=== PATIENT | female | born 1960 | race Caucasian/White ===

== ENCOUNTER → 2016-06-23 | Outpatient (CLI) | payer MEDICARE, MEDICAID ==
[2016-06-23 09:39] LABS: CHLORIDE,CL 101 mmol/L (98-110); SODIUM,NA 134 mmol/L (136-146)
== END ==
LOC: MW.CHFP 08:47
PROVIDERS: ATTEND Physician Assistant
DX: I10 Essential (primary) hypertension (principal); E11.9 Type 2 diabetes mellitus without complications; E66.9 Obesity, unspecified; R53.83 Other fatigue; G47.33 Obstructive sleep apnea (adult) (pediatric); Z99.89 Dependence on other enabling machines and devices
CPT/HCPCS: 36415; 80048; 83036; 84443; 85025; 99214

== ENCOUNTER → 2016-06-29 | Outpatient (CLI) | payer MEDICARE, MEDICAID | LOC: MW.CHFP 08:00 | PROVIDERS: ATTEND Student in an Organized Health Care Education/Training Program | DX: Z51.81 Encounter for therapeutic drug level monitoring (principal); Z79.01 Long term (current) use of anticoagulants; Z95.2 Presence of prosthetic heart valve | CPT/HCPCS: 85610; 99211 ==

== ENCOUNTER → 2016-07-30 | Outpatient (CLI) | payer MEDICARE, MEDICAID | LOC: MW.CHFP 08:00 | PROVIDERS: ATTEND Student in an Organized Health Care Education/Training Program | DX: Z51.81 Encounter for therapeutic drug level monitoring (principal); Z79.01 Long term (current) use of anticoagulants; Z95.2 Presence of prosthetic heart valve | CPT/HCPCS: 85610; 99211 ==

== ENCOUNTER → 2016-08-12 | Outpatient (CLI) | payer MEDICARE, MEDICAID | LOC: MW.RT 19:52 | PROVIDERS: ATTEND Physician Assistant | DX: G47.33 Obstructive sleep apnea (adult) (pediatric) (principal) | CPT/HCPCS: 95811 ==

== ENCOUNTER → 2016-08-31 | Outpatient (CLI) | payer MEDICARE, MEDICAID | LOC: MW.CHFP 08:00 | PROVIDERS: ATTEND Student in an Organized Health Care Education/Training Program | DX: Z51.81 Encounter for therapeutic drug level monitoring (principal); Z79.01 Long term (current) use of anticoagulants; Z95.2 Presence of prosthetic heart valve | CPT/HCPCS: 85610; 99211 ==

== ENCOUNTER 2020-12-06 08:18 | Day surgery (SDC) | payer MEDICARE, MEDICAID ==
[~2020-12-06 08:18] MED LIST: Lactated Ringers 1,000 ML IV SCH; cefOXitin 1 GM Vial ONE; cefOXitin 2 GM in Premix Bag 1 BAG IV ONE; propofoL 50 ML ONE
--- NOTE | 2020-12-06 08:35 | PCM.PREANE ---
Preanesthetic Assessment - Anesthesia/Transfusion/Family Hx Anesthesia History: Prior Anesthesia Without Reaction Other Type of Anesthesia Reaction Comment: anxiety due to medicaion that contained soy Family History of Anesthesia Reaction: No Transfusion History: No Prior Transfusion(s) Intubation History: Unknown - Review of Systems General: Weakness Pulmonary: Shortness of Breath, Cough Cardiovascular: Dyspnea on Exertion Gastrointestinal: No Symptoms Neurological: No Symptoms Other: Reports: Easy Bleeding, Diabetes - Physical Assessment Height: 5 ft 2 in Weight: 234 lb ASA Class: 3 Mental Status: Alert & Oriented x3 Airway Class: Mallampati = 2 Dentition: Reports: Normal Dentition Thyro-Mental Finger Breadths: 3 Mouth Opening Finger Breadths: 3 ROM/Head Extension: Full Lungs: Clear to Auscultation, Normal Respiratory Effort Cardiovascular: Regular Rate, Regular Rhythm - Allergies Allergies/Adverse Reactions: Allergies Allergy/AdvReac Type Severity Reaction Status Date / Time alfalfa Allergy Other Verified 12/02/20 13:34 corn Allergy Other Verified 12/02/20 13:34 Egg Derived Allergy Other Verified 12/02/20 13:34 Estrogens Allergy Hives Verified 12/02/20 13:34 Fish Containing Products Allergy Other Verified 12/02/20 13:34 latex Allergy Other Verified 12/02/20 13:34 metformin Allergy Other Verified 12/02/20 13:34 milk Allergy Other Verified 12/02/20 13:34 Penicillins Allergy Rash Verified 12/02/20 13:34 perfume Allergy Other Verified 12/02/20 13:34 rice Allergy Other Verified 12/02/20 13:34 shellfish derived Allergy Other Verified 12/02/20 13:34 soy Allergy Hives Verified 12/02/20 13:34 Sulfa (Sulfonamide Allergy Hives Verified 12/02/20 13:34 Antibiotics) tree and shrub pollen Allergy Other Verified 08/26/20 18:22 all grains Allergy Hives Uncoded 08/26/20 18:22 - Blood Blood Available: No - Acknowledgements Anesthesia Type Planned: General Anesthesia Pt an Appropriate Candidate for the Planned Anesthesia: Yes Alternatives and Risks of Anesthesia Discussed w Pt/Guardian: Yes Pt/Guardian Understands and Agrees with Anesthesia Plan: Yes PreAnesthesia Questionnaire HEENT History: Reports: Epistaxis Other HEENT History: wears glasses Cardiovascular History: Reports: Blood Clots/VTE/DVT, Heart Valve Replacement, Hypertension Other Cardiovascular History: hx of a "minor" blood clot in her leg 20 years ago- was already on anticoagulants Respiratory History: Reports: Asthma Other Respiratory History: unable to use CPAP because of latex allergy Gastrointestinal History: Reports: Cirrhosis, GERD Other Gastrointestinal History: recent positive Cologard test, has had diarrhea for 6 months, recent hospitalization for dehydration Genitourinary History: Reports: UTI, Recurrent Other Genitourinary History: atrophy of left kidney [employer] History: Reports: Musculoskeletal History: Reports: Back Pain, Chronic Other Musculoskeletal History: hx of fx foot, hx of scoliosis, degenerative disc disease Neurological History: Reports: CVA, Migraines Other Neuro History: 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- no migraines currently Psychiatric History: Reports: Depression Endocrine/Metabolic History: Reports: Diabetes, Type II, Obesity/BMI 30+ Other Endocrine/Metabolic History: diabetes is diet controlled Hgb A1c is 5.0 Hematologic History: Reports: Anticoagulation Therapy Immunologic History: Reports: None Oncologic (Cancer) History: Reports: None Dermatologic History: Reports: None - Infectious Disease History Infectious Disease History: Reports: Chicken Pox, Scarlet Fever - Past Surgical History HEENT Surgical History: Reports: Tonsillectomy Cardiovascular Surgical History: Reports: Valve Replacement GI Surgical History: Reports: Bariatric Procedure, Colonoscopy, EGD Female Surgical History: Reports: D&C, Hysterectomy Musculoskeletal Surgical History: Reports: Other (See Below) Other Musculoskeletal Surgeries/Procedures:: bilateral knee surgeries, right shoulder surgery for a spur - SUBSTANCE USE Tobacco Use Status *Q: Never Tobacco User Recreational Drug Use History: No - HOME MEDS Home Medications: Home Meds Cyclobenzaprine [Flexeril] 10 mg PO TID PRN 09/21/14 [History] EPINEPHrine [Epipen] 1 injection SUBCUT ASDIRECTED PRN 09/21/14 [History] PARoxetine [Paxil] 20 mg PO BEDTIME 09/21/14 [History] Warfarin Sodium [Jantoven] 1 tab PO BEDTIME 09/21/14 [History] Albuterol Sulfate [Proair Hfa] 1 - 2 puff INH Q4H PRN 12/02/20 [History] Montelukast Sodium 10 mg PO DAILY 12/02/20 [History] - CURRENT (IN HOUSE) MEDS Current Meds: Current Medications Lactated Ringer's (Ringers, Lactated) 1,000 mls @ 125 mls/hr IV ASDIRECTED LINA Discontinued Medications Cefoxitin Sodium (Cefoxitin 1 Gm Vial) Confirm Administered Dose 2 gm .ROUTE .STK-MED ONE Stop: 12/06/20 07:44 Cefoxitin Sodium 2 gm/ Premix 50 mls @ 100 mls/hr IV ONETIME ONE Stop: 12/06/20 07:29 Propofol (Diprivan 50 Ml) Confirm Administered Dose 50 mls @ as directed .ROUTE .STK-MED ONE Stop: 12/06/20 07:41 Lidocaine HCl (Lidocaine 1% 5 Ml Sdv) Confirm Administered Dose 5 ml .ROUTE .STK-MED ONE Stop: 12/06/20 07:43
[2020-12-06] MEDS ORDERED: Propofol 200 MG/20 ML SDV ONE ×2 (10:23→10:45)
[2020-12-06] MEDS ORDERED: Lactated Ringers 1,000 ML IV SCH (11:00)
--- NOTE | 2020-12-06 11:00 | PCM.OPNOTE ---
- General Post-Op/Procedure Note Date of Surgery/Procedure: 12/06/20 Operative Procedure(s): Colonoscopy with snare rectal polypectomy, cold cecal polypectomy and biopsies of the ascending colon and descending colon. Pre Op Diagnosis: Positive Cologuard. Family history of colon cancer. Rectal bleeding. Chronic anticoagulation. Post-Op Diagnosis: Rectal polyp. Cecal polyp. Angiodysplasia. Anesthesia Technique: MAC (ASA III) Primary Surgeon: Abilio Leo Condition: Good Free Text/Narrative:: DICTATION [id number] CPT CODE [id number]
--- NOTE | 2020-12-06 11:06 | PCM48HPAN ---
Post Anesthesia Note - EVALUATION WITHIN 48HRS OF ANESTHETIC Vital Signs in Normal Range: Yes Patient Participated in Evaluation: Yes Respiratory Function Stable: Yes Airway Patent: Yes Cardiovascular Function Stable: Yes Hydration Status Stable: Yes Pain Control Satisfactory: Yes Nausea and Vomiting Control Satisfactory: Yes Mental Status Recovered: Yes Vital Signs: Last Vital Signs Temp 98.2 F 12/06/20 10:54 Pulse 74 12/06/20 11:05 Resp 32 H 12/06/20 11:05 BP 125/65 12/06/20 11:05 Pulse Ox 97 12/06/20 11:05
--- NOTE | 2020-12-06 11:06 | PCM.POSTAN ---
POST ANESTHESIA ASSESSMENT - MENTAL STATUS Mental Status: Alert, Oriented - VITAL SIGNS Vital Signs: Last Vital Signs Temp 98.2 F 12/06/20 10:54 Pulse 76 12/06/20 11:00 Resp 22 H 12/06/20 11:00 BP 122/60 12/06/20 11:00 Pulse Ox 99 12/06/20 11:00 - RESPIRATORY Respiratory Status: Respiratory Rate WNL, Airway Patent, O2 Saturation Stable - CARDIOVASCULAR CV Status: Pulse Rate WNL, Blood Pressure Stable - GASTROINTESTINAL GI Status: No Symptoms - POST OP HYDRATION Hydration Status: Adequate & Stable
[2020-12-06 12:32] VITALS: BP 129/60; PULSE 70
--- NOTE | 2020-12-06 15:20 | OR ---
SURGEON: Abilio Leo M.D. DATE OF PROCEDURE: 12/06/2020 OPERATION PERFORMED: Colonoscopy with cold cecal polypectomy, snare rectal polypectomy and biopsies of the ascending colon and descending colon. PRIMARY SURGEON: Abilio Leo M.D. ANESTHESIA: MAC. ASA CLASSIFICATION: III. PREOPERATIVE DIAGNOSES: 1. Positive Cologuard test. 2. Family history of colon cancer. 3. Rectal bleeding. POSTOPERATIVE DIAGNOSES: 1. Rectal polyp. 2. Cecal polyp. 3. Angiodysplasia. DESCRIPTION OF PROCEDURE: The patient was taken to the endoscopy room and positioned on the endoscopy table in the left lateral decubitus position. Time-out was called for appropriate identification of the patient and procedure. Monitored anesthesia care was provided. The colonoscope was inserted into the rectum and immediately, we did notice blood in the rectum. There was no obvious cause for the bleeding, and I was able to advance the colonoscope all the way to the cecum. The cecum was identified by internal landmarks and external pressure. One small polyp was encountered in the cecum and removed with the cold biopsy forceps. The patient did have changes suggestive of angiodysplasia in the ascending colon, and biopsies of this area were obtained. The colonoscope was retroflexed to visualize the ascending colon from below and then straightened and slowly withdrawn. The cecum, ascending colon, hepatic flexure, transverse colon, splenic flexure, and descending colon showed changes suggestive of angiodysplasia. Random biopsies were obtained from multiple sites in the colon. The colonoscope was slowly withdrawn through the sigmoid colon to the rectum. No diverticular changes were noted in the sigmoid colon. One polyp was encountered in the rectum and this was removed with the snare electrocautery and recovered. It was just slightly less than 1 cm in size. The colonoscope was then retroflexed to visualize the anal orifice from above. No acute hemorrhoidal changes were noted. The colonoscope was then straightened, the rectum aspirated, and the colonoscope removed. The patient did tolerate the procedure well and was taken to recovery room in stable condition. CHERYL / KOJO /[id number]
== END 2020-12-06 11:50 | disposition home or self-care (01) ==
LOC: MW.SDS 08:18
PROVIDERS: ATTEND Surgery
DX: D12.0 Benign neoplasm of cecum (principal); D12.8 Benign neoplasm of rectum; K55.20 Angiodysplasia of colon without hemorrhage; J45.20 Mild intermittent asthma, uncomplicated; I13.0 Hypertensive heart and chronic kidney disease with heart failure and stage 1 through stage 4 chronic kidney disease, or unspecified chronic kidney disease; I50.9 Heart failure, unspecified; N18.30 Chronic kidney disease, stage 3 unspecified; E11.9 Type 2 diabetes mellitus without complications; I10 Essential (primary) hypertension; M81.0 Age-related osteoporosis without current pathological fracture; G47.33 Obstructive sleep apnea (adult) (pediatric); Z88.0 Allergy status to penicillin; Z88.2 Allergy status to sulfonamides; Z91.040 Latex allergy status; Z91.012 Allergy to eggs; Z91.013 Allergy to seafood; Z79.01 Long term (current) use of anticoagulants; Z79.899 Other long term (current) drug therapy; Z80.0 Family history of malignant neoplasm of digestive organs; Z95.4 Presence of other heart-valve replacement
CPT/HCPCS: 45380; 45385; 88305; J0694; J2704; J7120; 00811

== ENCOUNTER 2023-10-07 15:02 | Inpatient (IN) | payer MEDICARE ==
[2023-10-07] MEDS: Sodium Chloride 0.9% 10 ML Syringe FLUSH PRN (15:58)
[2023-10-07] MEDS: Sodium Chloride 0.9% 2.5 ML Syringe FLUSH PRN (16:00)
[2023-10-07 16:51] LABS: HEMATOCRIT 34.7 % (37.0-47.0); HEMOGLOBIN 11.3 g/dL (12.0-16.0); IMMATURE GRAN ABSOLUTE AUTO 0.01 K/uL (0.00-0.05); IMMATURE GRAN PERCENT AUTO 0.2 % (0.0-0.4); LYMPHOCYTES PERCENT AUTO 6.4 % (24.0-44.0); MEAN CORPUSCULAR HEMOGLOBIN 30.8 pg (28.0-32.0); MEAN CORPUSCULAR HGB CONC 32.6 g/dL (32.0-36.0); MEAN CORPUSCULAR VOLUME 94.6 fL (83.0-99.0); MEAN PLATELET VOLUME 11.3 fL (9.4-12.3); MONOCYTES ABSOLUTE AUTO 0.02 K/uL (0.00-0.80); MONOCYTES PERCENT AUTO 0.4 % (0.0-8.0); NEUTROPHILS ABSOLUTE AUTO 4.34 K/uL (1.80-7.70); PLATELET COUNT,PLT 91 K/uL (150-400); RED BLOOD CELL COUNT 3.67 M/uL (4.10-5.30); WHITE BLOOD CELL COUNT,WBC 4.67 K/uL (3.9-11.3)
[2023-10-07 17:28] LABS: A/G RATIO 0.9 (0.9-1.6); ALBUMIN 3.5 g/dL (3.4-5.0); BILIRUBIN TOTAL 0.9 mg/dL (0.2-1.0); CALCIUM 9.3 mg/dL (8.5-10.1); CARBON DIOXIDE,CO2 16.3 mmol/L (21.0-32.0); CREATININE 3.2 mg/dL (0.6-1.0); EST CRCL DRUG DOSING (CG) 14.89 mL/min; POTASSIUM,K 6.5 mmol/L (3.5-5.1); PROTEIN TOTAL,TP 7.6 g/dL (6.4-8.2)
[2023-10-07 17:32] LABS: INR 2.37 (0.86-1.11)
[2023-10-07 18:07] LABS: APPEARANCE,URINE SLT CLOUDY; BILIRUBIN,URINE NEGATIVE (NEGATIVE); COLOR,URINE YELLOW; GLUCOSE,URINE NEGATIVE (NEGATIVE); KETONES,URINE NEGATIVE (NEGATIVE); LEUKOCYTE ESTERASE,URINE MODERATE (NEGATIVE); NITRITE,URINE NEGATIVE (NEGATIVE); OCCULT BLOOD,URINE TRACE-INTACT (NEGATIVE); PROTEIN,URINE 100 mg/dL (NEGATIVE); UROBILINOGEN,URINE 0.2 EU/dL (<2.0)
[2023-10-07] MEDS ORDERED: Glucagon,Human Recombinant 1 MG Vial IM PRN ×2 (18:11→22:56)
[2023-10-07] MEDS ORDERED: 50% Dextrose in Water 50 ML Syringe IVPUSH PRN ×2 (18:11→22:56)
[2023-10-07 18:23] LABS: RBC,URINE 0-2 (0-2/HPF)
[2023-10-07 18:24] LABS: BACTERIA,URINE 3+ (NEGATIVE); EPITHELIAL CELLS,URINE RARE (NONE-FEW); WBC,URINE 25-30 (0-5/HPF)
[2023-10-07] MEDS: Sodium Polystyrene Sulfonate 15 GM/60 ML Susp 60 ML Bot PO ONE (19:18)
[2023-10-07] MEDS: Insulin Regular, Human 100 Units/ML 10 ML Vial IVPUSH ONE (19:18)
[2023-10-07] MEDS: 50% Dextrose in Water 50 ML Syringe IVPUSH ONE (19:19)
[2023-10-07] MEDS: Lactated Ringers 1,000 ML IV STA (19:21)
[2023-10-07] MEDS: cefTRIAXone 1 GM in Sodium Chloride 0.9% 50 ML IV ONE (21:25)
[2023-10-07 21:35] LABS: CALCIUM 9.1 mg/dL (8.5-10.1); CARBON DIOXIDE,CO2 16.8 mmol/L (21.0-32.0); EST CRCL DRUG DOSING (CG) 15.88 mL/min; POTASSIUM,K 5.6 mmol/L (3.5-5.1)
[2023-10-07 21:43] LABS: LACTIC ACID 3.2 mmol/L (0.4-2.0)
[2023-10-07] MEDS ORDERED: Albuterol/Ipratropium 3.0-0.5 MG/3 ML Neb Soln NEB PRN (22:52)
[2023-10-07] MEDS ORDERED: Acetaminophen 325 MG Tab PO PRN (22:53)
[2023-10-08] MEDS: Sodium Chloride 0.9% 1,000 ML IV ONE (01:02)
[2023-10-08] MEDS: Sodium Chloride 0.9% 1,000 ML IV SCH (02:42)
[2023-10-08 07:10] LABS: BASOPHILS ABSOLUTE AUTO 0.01 K/uL (0.00-0.20); BASOPHILS PERCENT AUTO 0.1 % (0.0-1.0); HEMATOCRIT 34.4 % (37.0-47.0); HEMOGLOBIN 11.1 g/dL (12.0-16.0); IMMATURE GRAN ABSOLUTE AUTO 0.04 K/uL (0.00-0.05); IMMATURE GRAN PERCENT AUTO 0.3 % (0.0-0.4); LYMPHOCYTES ABSOLUTE AUTO 0.74 K/uL (1.00-4.80); LYMPHOCYTES PERCENT AUTO 6.1 % (24.0-44.0); MEAN CORPUSCULAR HEMOGLOBIN 31.1 pg (28.0-32.0); MEAN CORPUSCULAR HGB CONC 32.3 g/dL (32.0-36.0); MEAN CORPUSCULAR VOLUME 96.4 fL (83.0-99.0); MEAN PLATELET VOLUME 11.1 fL (9.4-12.3); MONOCYTES PERCENT AUTO 3.3 % (0.0-8.0); NEUTROPHILS ABSOLUTE AUTO 11.01 K/uL (1.80-7.70); NEUTROPHILS PERCENT AUTO 90.2 % (41.0-71.0); PLATELET COUNT,PLT 82 K/uL (150-400); RED BLOOD CELL COUNT 3.57 M/uL (4.10-5.30)
[2023-10-08 07:25] LABS: INR 2.72 (0.86-1.11)
[2023-10-08 07:29] LABS: CALCIUM 7.7 mg/dL (8.5-10.1); CARBON DIOXIDE,CO2 16.9 mmol/L (21.0-32.0); CREATININE 2.7 mg/dL (0.6-1.0); EST CRCL DRUG DOSING (CG) 17.64 mL/min; POTASSIUM,K 5.1 mmol/L (3.5-5.1)
[2023-10-08] MEDS: Insulin Aspart 100 Units/ML 3 ML Pen SUBCUT SCH (07:29)
[2023-10-08] MEDS: amLODIPine 2.5 MG Tab PO SCH (10:12)
[2023-10-08] MEDS: Warfarin 2.5 MG Tab PO SCH (16:46)
[2023-10-08] MEDS: Warfarin Sliding Scale PO SCH (19:03)
[2023-10-08] MEDS: cefTRIAXone 1 GM in Sodium Chloride 0.9% 50 ML IV SCH (21:42)
[2023-10-09 05:50] LABS: BASOPHILS ABSOLUTE AUTO 0.05 K/uL (0.00-0.20); BASOPHILS PERCENT AUTO 0.7 % (0.0-1.0); EOSINOPHILS ABSOLUTE AUTO 0.08 K/uL (0.00-0.45); HEMATOCRIT 30.7 % (37.0-47.0); HEMOGLOBIN 9.8 g/dL (12.0-16.0); IMMATURE GRAN ABSOLUTE AUTO 0.02 K/uL (0.00-0.05); IMMATURE GRAN PERCENT AUTO 0.3 % (0.0-0.4); LYMPHOCYTES ABSOLUTE AUTO 1.14 K/uL (1.00-4.80); LYMPHOCYTES PERCENT AUTO 14.9 % (24.0-44.0); MEAN CORPUSCULAR HEMOGLOBIN 30.7 pg (28.0-32.0); MEAN CORPUSCULAR HGB CONC 31.9 g/dL (32.0-36.0); MEAN CORPUSCULAR VOLUME 96.2 fL (83.0-99.0); MEAN PLATELET VOLUME 12.5 fL (9.4-12.3); MONOCYTES ABSOLUTE AUTO 0.39 K/uL (0.00-0.80); MONOCYTES PERCENT AUTO 5.1 % (0.0-8.0); NEUTROPHILS ABSOLUTE AUTO 5.97 K/uL (1.80-7.70); PLATELET COUNT,PLT 70 K/uL (150-400); RED BLOOD CELL COUNT 3.19 M/uL (4.10-5.30); WHITE BLOOD CELL COUNT,WBC 7.65 K/uL (3.9-11.3)
[2023-10-09 06:03] LABS: INR 2.34 (0.86-1.11)
[2023-10-09 06:06] LABS: CALCIUM 7.9 mg/dL (8.5-10.1); CREATININE 2.9 mg/dL (0.6-1.0); EST CRCL DRUG DOSING (CG) 16.42 mL/min
[2023-10-09 12:12] VITALS: BP 152/55; PULSE 73
[2023-10-09] MEDS ORDERED: Warfarin 2.5 MG Tab PO SCH ×2 (17:00)
== END 2023-10-09 12:40 | disposition home or self-care (01) | DRG 690 ==
LOC: MW.ED 15:02 → MW.MS 19:16 → OBSVTOIN 10-08 09:22
PROVIDERS: ADMIT Internal Medicine; ATTEND Internal Medicine
DX: N30.00 Acute cystitis without hematuria (principal); N17.9 Acute kidney failure, unspecified; N18.9 Chronic kidney disease, unspecified; I44.7 Left bundle-branch block, unspecified; E87.5 Hyperkalemia; Z66 Do not resuscitate; I12.9 Hypertensive chronic kidney disease with stage 1 through stage 4 chronic kidney disease, or unspecified chronic kidney disease; E11.22 Type 2 diabetes mellitus with diabetic chronic kidney disease; I10 Essential (primary) hypertension; K21.9 Gastro-esophageal reflux disease without esophagitis; M19.90 Unspecified osteoarthritis, unspecified site; M54.9 Dorsalgia, unspecified; G89.29 Other chronic pain; G43.909 Migraine, unspecified, not intractable, without status migrainosus; F32.A Depression, unspecified; J45.909 Unspecified asthma, uncomplicated; Z88.0 Allergy status to penicillin; E66.9 Obesity, unspecified; E11.9 Type 2 diabetes mellitus without complications; Z91.013 Allergy to seafood; Z91.018 Allergy to other foods; Z91.011 Allergy to milk products; Z79.51 Long term (current) use of inhaled steroids; Z91.012 Allergy to eggs; Z91.040 Latex allergy status; Z95.2 Presence of prosthetic heart valve; Z86.73 Personal history of transient ischemic attack (TIA), and cerebral infarction without residual deficits; Z88.2 Allergy status to sulfonamides; Z90.89 Acquired absence of other organs; Z98.84 Bariatric surgery status; Z88.8 Allergy status to other drugs, medicaments and biological substances; Z91.048 Other nonmedicinal substance allergy status; Z79.01 Long term (current) use of anticoagulants; Z79.899 Other long term (current) drug therapy; Z90.710 Acquired absence of both cervix and uterus; Z68.39 Body mass index [BMI] 39.0-39.9, adult; Z75.8 Other problems related to medical facilities and other health care
CPT/HCPCS: 36415 ×2; 71045; 80048 ×2; 80053; 81001; 82947 ×5; 83605 ×3; 84484; 85025 ×2; 85610 ×2; 87040 ×2; 87086; 87088; 87186; 93005; 96361 ×2; 96365; 96375; 99285; A9270; G0378 ×2; J0696; J1815; J3490 ×2; J7030 ×2; J7120; 97161-GP

== ENCOUNTER 2023-10-18 11:15 | Observation (INO) | payer MEDICARE ==
[2023-10-18 12:07] LABS: BASOPHILS ABSOLUTE AUTO 0.03 K/uL (0.00-0.20); BASOPHILS PERCENT AUTO 0.3 % (0.0-1.0); EOSINOPHILS ABSOLUTE AUTO 0.45 K/uL (0.00-0.45); EOSINOPHILS PERCENT AUTO 4.7 % (0.0-6.0); HEMATOCRIT 32.2 % (37.0-47.0); IMMATURE GRAN ABSOLUTE AUTO 0.13 K/uL (0.00-0.05); IMMATURE GRAN PERCENT AUTO 1.4 % (0.0-0.4); LYMPHOCYTES ABSOLUTE AUTO 0.98 K/uL (1.00-4.80); LYMPHOCYTES PERCENT AUTO 10.2 % (24.0-44.0); MEAN CORPUSCULAR HEMOGLOBIN 30.9 pg (28.0-32.0); MEAN CORPUSCULAR HGB CONC 31.1 g/dL (32.0-36.0); MEAN CORPUSCULAR VOLUME 99.4 fL (83.0-99.0); MEAN PLATELET VOLUME 11.3 fL (9.4-12.3); MONOCYTES PERCENT AUTO 11.5 % (0.0-8.0); NEUTROPHILS PERCENT AUTO 71.9 % (41.0-71.0); PLATELET COUNT,PLT 102 K/uL (150-400); RED BLOOD CELL COUNT 3.24 M/uL (4.10-5.30); WHITE BLOOD CELL COUNT,WBC 9.59 K/uL (3.9-11.3)
[2023-10-18] MEDS: Sodium Chloride 0.9% 2.5 ML Syringe FLUSH PRN (12:12)
[2023-10-18] MEDS: Sodium Chloride 0.9% 10 ML Syringe FLUSH PRN (12:12)
[2023-10-18] MEDS: Albuterol 0.083% 2.5 MG/3 ML Neb Soln NEB ONE (12:12)
[2023-10-18 12:16] LABS: INR 2.45 (0.86-1.11)
[2023-10-18 12:26] LABS: ALBUMIN 2.8 g/dL (3.4-5.0); BILIRUBIN TOTAL 1.5 mg/dL (0.2-1.0); CALCIUM 8.4 mg/dL (8.5-10.1); CARBON DIOXIDE,CO2 21.2 mmol/L (21.0-32.0); CREATININE 2.8 mg/dL (0.6-1.0); EST CRCL DRUG DOSING (CG) 16.26 mL/min; POTASSIUM,K 6.2 mmol/L (3.5-5.1); PROTEIN TOTAL,TP 6.1 g/dL (6.4-8.2)
[2023-10-18 12:30] LABS: A/G RATIO 0.9 (0.9-1.6)
[2023-10-18] MEDS: Furosemide 40 MG/4 ML VIAL IVPUSH ONE (13:06)
[2023-10-18] MEDS: Sodium Zirconium Cyclosilicate 10 GM Packet PO STA (13:06)
[2023-10-18] MEDS: Calcium Gluconate 10% 1 GM/10 ML SDV IVPUSH ONE (13:06)
[2023-10-18] MEDS ORDERED: Sodium Chloride 0.9% 10 ML Syringe FLUSH PRN (13:29)
[2023-10-18] MEDS ORDERED: Ondansetron 4 MG/2 ML SDV IVPUSH PRN (13:29)
[2023-10-18] MEDS ORDERED: Sodium Chloride 0.9% 2.5 ML Syringe FLUSH PRN (13:29)
[2023-10-18] MEDS ORDERED: Acetaminophen 325 MG Tab PO PRN (13:29)
[2023-10-18] MEDS ORDERED: Cyclobenzaprine 10 MG Tab PO PRN (14:57)
[2023-10-18] MEDS ORDERED: Albuterol 8 GM Inhaler INH PRN (14:57)
[2023-10-18] MEDS ORDERED: Allopurinol 100 MG Tab PO PRN (16:23)
[2023-10-18] MEDS: Allopurinol 100 MG Tab PO SCH (16:30)
[2023-10-18] MEDS: Warfarin 2.5 MG Tab PO ONE (16:51)
[2023-10-18] MEDS: Sodium Zirconium Cyclosilicate 10 GM Packet PO SCH (17:02)
[2023-10-18] MEDS: amLODIPine 5 MG Tab PO SCH (20:30)
[2023-10-18] MEDS: PARoxetine 20 MG Tab PO SCH (20:30)
[2023-10-18] MEDS: Montelukast 10 MG Tab PO SCH (20:30)
[2023-10-18] MEDS: Cephalexin 500 MG Cap PO SCH (20:30)
[2023-10-19 06:01] LABS: BASOPHILS ABSOLUTE AUTO 0.02 K/uL (0.00-0.20); BASOPHILS PERCENT AUTO 0.3 % (0.0-1.0); EOSINOPHILS ABSOLUTE AUTO 0.25 K/uL (0.00-0.45); EOSINOPHILS PERCENT AUTO 4.2 % (0.0-6.0); HEMATOCRIT 29.9 % (37.0-47.0); HEMOGLOBIN 9.2 g/dL (12.0-16.0); IMMATURE GRAN ABSOLUTE AUTO 0.02 K/uL (0.00-0.05); IMMATURE GRAN PERCENT AUTO 0.3 % (0.0-0.4); LYMPHOCYTES ABSOLUTE AUTO 1.05 K/uL (1.00-4.80); LYMPHOCYTES PERCENT AUTO 17.5 % (24.0-44.0); MEAN CORPUSCULAR HEMOGLOBIN 30.4 pg (28.0-32.0); MEAN CORPUSCULAR HGB CONC 30.8 g/dL (32.0-36.0); MEAN CORPUSCULAR VOLUME 98.7 fL (83.0-99.0); MEAN PLATELET VOLUME 11.8 fL (9.4-12.3); MONOCYTES ABSOLUTE AUTO 0.51 K/uL (0.00-0.80); MONOCYTES PERCENT AUTO 8.5 % (0.0-8.0); NEUTROPHILS ABSOLUTE AUTO 4.16 K/uL (1.80-7.70); NEUTROPHILS PERCENT AUTO 69.2 % (41.0-71.0); PLATELET COUNT,PLT 62 K/uL (150-400); RED BLOOD CELL COUNT 3.03 M/uL (4.10-5.30); WHITE BLOOD CELL COUNT,WBC 6.01 K/uL (3.9-11.3)
[2023-10-19 06:17] LABS: INR 2.22 (0.86-1.11)
[2023-10-19 06:22] LABS: CALCIUM 8.3 mg/dL (8.5-10.1); CARBON DIOXIDE,CO2 22.7 mmol/L (21.0-32.0); CREATININE 2.7 mg/dL (0.6-1.0); EST CRCL DRUG DOSING (CG) 17.64 mL/min; POTASSIUM,K 5.3 mmol/L (3.5-5.1)
[2023-10-19] MEDS: Sodium Zirconium Cyclosilicate 10 GM Packet PO SCH (09:26)
[2023-10-19 12:31] VITALS: BP 168/70; PULSE 73
[2023-10-19] MEDS ORDERED: Warfarin Sliding Scale SCH (14:00)
[2023-10-19] MEDS ORDERED: Warfarin 2.5 MG Tab PO ONE (14:00)
== END 2023-10-19 13:00 | disposition home or self-care (01) ==
LOC: MW.ED 11:15 → MW.MS 12:59
PROVIDERS: ADMIT Family Medicine; ATTEND Family Medicine
DX: E87.5 Hyperkalemia (principal); I12.0 Hypertensive chronic kidney disease with stage 5 chronic kidney disease or end stage renal disease; E11.22 Type 2 diabetes mellitus with diabetic chronic kidney disease; N18.5 Chronic kidney disease, stage 5; J45.909 Unspecified asthma, uncomplicated; Z95.2 Presence of prosthetic heart valve; K21.9 Gastro-esophageal reflux disease without esophagitis; E66.01 Morbid (severe) obesity due to excess calories; Z68.41 Body mass index [BMI] 40.0-44.9, adult; Z79.899 Other long term (current) drug therapy; Z88.0 Allergy status to penicillin; Z91.012 Allergy to eggs; Z91.040 Latex allergy status; Z91.013 Allergy to seafood; Z91.018 Allergy to other foods; Z88.8 Allergy status to other drugs, medicaments and biological substances; Z88.2 Allergy status to sulfonamides
CPT/HCPCS: 36415; 80048; 80053; 82947; 83690; 83735; 84132; 85025; 85610; 93005; 96374; 96375; 99285; A9270; G0378; J0612; J1940; J3490; 93010; 99284; J7620-GY

== ENCOUNTER 2023-12-31 14:25 | Inpatient (IN) | payer MEDICAID, MEDICARE ==
[2023-12-31] MEDS ORDERED: Sodium Chloride 0.9% 2.5 ML Syringe FLUSH PRN (15:09)
[2023-12-31] MEDS ORDERED: Sodium Chloride 0.9% 10 ML Syringe FLUSH PRN (15:09)
[2023-12-31 15:23] LABS: BASOPHILS ABSOLUTE AUTO 0.03 K/uL (0.00-0.20); BASOPHILS PERCENT AUTO 0.5 % (0.0-1.0); EOSINOPHILS ABSOLUTE AUTO 0.12 K/uL (0.00-0.45); EOSINOPHILS PERCENT AUTO 2.1 % (0.0-6.0); HEMATOCRIT 13.9 % (37.0-47.0); IMMATURE GRAN ABSOLUTE AUTO 0.02 K/uL (0.00-0.05); IMMATURE GRAN PERCENT AUTO 0.3 % (0.0-0.4); LYMPHOCYTES ABSOLUTE AUTO 0.83 K/uL (1.00-4.80); LYMPHOCYTES PERCENT AUTO 14.5 % (24.0-44.0); MEAN CORPUSCULAR HEMOGLOBIN 23.5 pg (28.0-32.0); MEAN CORPUSCULAR HGB CONC 30.2 g/dL (32.0-36.0); MEAN CORPUSCULAR VOLUME 77.7 fL (83.0-99.0); MEAN PLATELET VOLUME 9.1 fL (9.4-12.3); MONOCYTES ABSOLUTE AUTO 0.41 K/uL (0.00-0.80); MONOCYTES PERCENT AUTO 7.2 % (0.0-8.0); NEUTROPHILS ABSOLUTE AUTO 4.31 K/uL (1.80-7.70); NEUTROPHILS PERCENT AUTO 75.4 % (41.0-71.0); NRBC ABSOLUTE 0.02 K/uL (0.00-0.02); NRBC PERCENT 0.3 /100WBC (0.0-0.2); PLATELET COUNT,PLT 163 K/uL (150-400); RED BLOOD CELL COUNT 1.79 M/uL (4.10-5.30); WHITE BLOOD CELL COUNT,WBC 5.72 K/uL (3.9-11.3)
[2023-12-31 15:28] LABS: INR 2.51 (0.86-1.11)
[2023-12-31 15:40] LABS: HEMOGLOBIN 4.2 g/dL (12.0-16.0)
[2023-12-31 15:42] LABS: A/G RATIO 0.7 (0.9-1.6); ALBUMIN 2.9 g/dL (3.4-5.0); BILIRUBIN TOTAL 0.8 mg/dL (0.2-1.0); CALCIUM 8.3 mg/dL (8.5-10.1); CARBON DIOXIDE,CO2 16.8 mmol/L (21.0-32.0); CREATININE 3.9 mg/dL (0.6-1.0); EST CRCL DRUG DOSING (CG) 12.75 mL/min; POTASSIUM,K 4.1 mmol/L (3.5-5.1); PROTEIN TOTAL,TP 6.9 g/dL (6.4-8.2)
[2023-12-31] MEDS: Furosemide 40 MG/4 ML VIAL IVPUSH ONE (16:23)
[2023-12-31] MEDS ORDERED: Cyclobenzaprine 10 MG Tab PO PRN (19:33)
[2023-12-31] MEDS ORDERED: Albuterol 8 GM Inhaler INH PRN (19:33)
[2023-12-31 20:03] LABS: APPEARANCE,URINE CLEAR; BILIRUBIN,URINE NEGATIVE (NEGATIVE); COLOR,URINE YELLOW; GLUCOSE,URINE NEGATIVE (NEGATIVE); KETONES,URINE NEGATIVE (NEGATIVE); LEUKOCYTE ESTERASE,URINE SMALL (NEGATIVE); NITRITE,URINE NEGATIVE (NEGATIVE); OCCULT BLOOD,URINE MODERATE (NEGATIVE); PROTEIN,URINE NEGATIVE (NEGATIVE); UROBILINOGEN,URINE 0.2 EU/dL (<2.0)
[2023-12-31 20:19] LABS: BACTERIA,URINE 2+ (NEGATIVE); EPITHELIAL CELLS,URINE RARE (NONE-FEW); WBC,URINE 15-25 (0-5/HPF)
[2023-12-31] MEDS: PARoxetine 20 MG Tab PO SCH (21:13)
[2024-01-01 06:23] LABS: BASOPHILS ABSOLUTE AUTO 0.02 K/uL (0.00-0.20); BASOPHILS PERCENT AUTO 0.3 % (0.0-1.0); EOSINOPHILS ABSOLUTE AUTO 0.14 K/uL (0.00-0.45); EOSINOPHILS PERCENT AUTO 2.3 % (0.0-6.0); HEMATOCRIT 20.2 % (37.0-47.0); HEMOGLOBIN 6.3 g/dL (12.0-16.0); IMMATURE GRAN ABSOLUTE AUTO 0.02 K/uL (0.00-0.05); IMMATURE GRAN PERCENT AUTO 0.3 % (0.0-0.4); LYMPHOCYTES ABSOLUTE AUTO 0.77 K/uL (1.00-4.80); LYMPHOCYTES PERCENT AUTO 12.4 % (24.0-44.0); MEAN CORPUSCULAR HGB CONC 31.2 g/dL (32.0-36.0); MEAN CORPUSCULAR VOLUME 80.2 fL (83.0-99.0); MEAN PLATELET VOLUME 9.5 fL (9.4-12.3); MONOCYTES ABSOLUTE AUTO 0.59 K/uL (0.00-0.80); MONOCYTES PERCENT AUTO 9.5 % (0.0-8.0); NEUTROPHILS ABSOLUTE AUTO 4.68 K/uL (1.80-7.70); NEUTROPHILS PERCENT AUTO 75.2 % (41.0-71.0); NRBC ABSOLUTE 0.02 K/uL (0.00-0.02); NRBC PERCENT 0.3 /100WBC (0.0-0.2); PLATELET COUNT,PLT 134 K/uL (150-400); RED BLOOD CELL COUNT 2.52 M/uL (4.10-5.30); WHITE BLOOD CELL COUNT,WBC 6.22 K/uL (3.9-11.3)
[2024-01-01 07:26] LABS: CALCIUM 7.8 mg/dL (8.5-10.1); CREATININE 3.5 mg/dL (0.6-1.0); EST CRCL DRUG DOSING (CG) 14.21 mL/min
[2024-01-01 08:11] LABS: POTASSIUM,K 3.8 mmol/L (3.5-5.1)
[2024-01-01 11:51] LABS: INR 2.09 (0.86-1.11)
[2024-01-01 18:32] LABS: BASOPHILS ABSOLUTE AUTO 0.04 K/uL (0.00-0.20); BASOPHILS PERCENT AUTO 0.6 % (0.0-1.0); EOSINOPHILS ABSOLUTE AUTO 0.16 K/uL (0.00-0.45); EOSINOPHILS PERCENT AUTO 2.5 % (0.0-6.0); HEMATOCRIT 26.5 % (37.0-47.0); IMMATURE GRAN ABSOLUTE AUTO 0.06 K/uL (0.00-0.05); IMMATURE GRAN PERCENT AUTO 0.9 % (0.0-0.4); LYMPHOCYTES ABSOLUTE AUTO 0.66 K/uL (1.00-4.80); LYMPHOCYTES PERCENT AUTO 10.4 % (24.0-44.0); MEAN CORPUSCULAR HEMOGLOBIN 26.8 pg (28.0-32.0); MEAN CORPUSCULAR VOLUME 78.9 fL (83.0-99.0); MEAN PLATELET VOLUME 10.2 fL (9.4-12.3); MONOCYTES ABSOLUTE AUTO 0.44 K/uL (0.00-0.80); NEUTROPHILS ABSOLUTE AUTO 4.97 K/uL (1.80-7.70); NEUTROPHILS PERCENT AUTO 78.6 % (41.0-71.0); NRBC ABSOLUTE 0.03 K/uL (0.00-0.02); NRBC PERCENT 0.5 /100WBC (0.0-0.2); PLATELET COUNT,PLT 109 K/uL (150-400); RED BLOOD CELL COUNT 3.36 M/uL (4.10-5.30); WHITE BLOOD CELL COUNT,WBC 6.33 K/uL (3.9-11.3)
[2024-01-02 06:29] LABS: BASOPHILS ABSOLUTE AUTO 0.03 K/uL (0.00-0.20); BASOPHILS PERCENT AUTO 0.5 % (0.0-1.0); EOSINOPHILS ABSOLUTE AUTO 0.15 K/uL (0.00-0.45); EOSINOPHILS PERCENT AUTO 2.3 % (0.0-6.0); HEMATOCRIT 25.9 % (37.0-47.0); HEMOGLOBIN 8.6 g/dL (12.0-16.0); IMMATURE GRAN ABSOLUTE AUTO 0.03 K/uL (0.00-0.05); IMMATURE GRAN PERCENT AUTO 0.5 % (0.0-0.4); LYMPHOCYTES ABSOLUTE AUTO 0.64 K/uL (1.00-4.80); LYMPHOCYTES PERCENT AUTO 9.7 % (24.0-44.0); MEAN CORPUSCULAR HEMOGLOBIN 26.5 pg (28.0-32.0); MEAN CORPUSCULAR HGB CONC 33.2 g/dL (32.0-36.0); MEAN CORPUSCULAR VOLUME 79.7 fL (83.0-99.0); MEAN PLATELET VOLUME 9.2 fL (9.4-12.3); MONOCYTES ABSOLUTE AUTO 0.47 K/uL (0.00-0.80); MONOCYTES PERCENT AUTO 7.1 % (0.0-8.0); NEUTROPHILS ABSOLUTE AUTO 5.27 K/uL (1.80-7.70); NEUTROPHILS PERCENT AUTO 79.9 % (41.0-71.0); NRBC ABSOLUTE 0.02 K/uL (0.00-0.02); NRBC PERCENT 0.3 /100WBC (0.0-0.2); PLATELET COUNT,PLT 134 K/uL (150-400); RED BLOOD CELL COUNT 3.25 M/uL (4.10-5.30); WHITE BLOOD CELL COUNT,WBC 6.59 K/uL (3.9-11.3)
[2024-01-02 06:43] LABS: INR 1.97 (0.86-1.11)
[2024-01-02 06:49] LABS: CALCIUM 8.2 mg/dL (8.5-10.1); CARBON DIOXIDE,CO2 21.3 mmol/L (21.0-32.0); CREATININE 3.5 mg/dL (0.6-1.0); EST CRCL DRUG DOSING (CG) 14.21 mL/min; POTASSIUM,K 3.8 mmol/L (3.5-5.1)
[2024-01-02 16:14] LABS: HEMATOCRIT 24.3 % (37.0-47.0); HEMOGLOBIN 8.2 g/dL (12.0-16.0)
[2024-01-03 06:21] LABS: BASOPHILS ABSOLUTE AUTO 0.03 K/uL (0.00-0.20); BASOPHILS PERCENT AUTO 0.5 % (0.0-1.0); EOSINOPHILS ABSOLUTE AUTO 0.23 K/uL (0.00-0.45); EOSINOPHILS PERCENT AUTO 4.1 % (0.0-6.0); HEMATOCRIT 26.8 % (37.0-47.0); HEMOGLOBIN 8.7 g/dL (12.0-16.0); IMMATURE GRAN ABSOLUTE AUTO 0.03 K/uL (0.00-0.05); IMMATURE GRAN PERCENT AUTO 0.5 % (0.0-0.4); LYMPHOCYTES ABSOLUTE AUTO 0.81 K/uL (1.00-4.80); LYMPHOCYTES PERCENT AUTO 14.5 % (24.0-44.0); MEAN CORPUSCULAR HEMOGLOBIN 26.1 pg (28.0-32.0); MEAN CORPUSCULAR HGB CONC 32.5 g/dL (32.0-36.0); MEAN CORPUSCULAR VOLUME 80.5 fL (83.0-99.0); MEAN PLATELET VOLUME 8.9 fL (9.4-12.3); MONOCYTES ABSOLUTE AUTO 0.45 K/uL (0.00-0.80); NEUTROPHILS ABSOLUTE AUTO 4.05 K/uL (1.80-7.70); NEUTROPHILS PERCENT AUTO 72.4 % (41.0-71.0); PLATELET COUNT,PLT 127 K/uL (150-400); RED BLOOD CELL COUNT 3.33 M/uL (4.10-5.30)
[2024-01-03 06:44] LABS: CALCIUM 8.5 mg/dL (8.5-10.1); CARBON DIOXIDE,CO2 22.6 mmol/L (21.0-32.0); CREATININE 3.2 mg/dL (0.6-1.0); EST CRCL DRUG DOSING (CG) 15.54 mL/min; MAGNESIUM 1.4 mg/dL (1.8-2.4); POTASSIUM,K 3.9 mmol/L (3.5-5.1)
[2024-01-03] MEDS: Magnesium Sulfate/Water Premix 2 GM in Premix Bag 1 BAG IV ONE (08:56)
[2024-01-03] MEDS: Nystatin Topical Powder 15 GM Bottle TOP PRN (08:57)
[2024-01-03 12:13] VITALS: BP 148/61; PULSE 84
== END 2024-01-03 12:10 | disposition home or self-care (01) | DRG 812 ==
LOC: MW.ED 14:25 → MW.MS 16:29
PROVIDERS: ADMIT Internal Medicine; ATTEND Internal Medicine
PROC: 30233N1 Transfusion of Nonautologous Red Blood Cells into Peripheral Vein, Percutaneous Approach (ICD-10-PCS; principal; 2023-12-31)
PROC: 30233N1 Transfusion of Nonautologous Red Blood Cells into Peripheral Vein, Percutaneous Approach (ICD-10-PCS; 2024-01-01)
DX: D64.9 Anemia, unspecified (principal); N17.9 Acute kidney failure, unspecified; I10 Essential (primary) hypertension; E11.9 Type 2 diabetes mellitus without complications; E87.1 Hypo-osmolality and hyponatremia; I13.0 Hypertensive heart and chronic kidney disease with heart failure and stage 1 through stage 4 chronic kidney disease, or unspecified chronic kidney disease; Z68.41 Body mass index [BMI] 40.0-44.9, adult; R04.0 Epistaxis; Z88.2 Allergy status to sulfonamides; Z88.5 Allergy status to narcotic agent; I50.9 Heart failure, unspecified; E66.9 Obesity, unspecified; Z91.048 Other nonmedicinal substance allergy status; N18.9 Chronic kidney disease, unspecified; M10.9 Gout, unspecified; G89.29 Other chronic pain; M81.0 Age-related osteoporosis without current pathological fracture; J45.909 Unspecified asthma, uncomplicated; K21.9 Gastro-esophageal reflux disease without esophagitis; Z88.0 Allergy status to penicillin; Z88.8 Allergy status to other drugs, medicaments and biological substances; Z95.2 Presence of prosthetic heart valve; Z86.73 Personal history of transient ischemic attack (TIA), and cerebral infarction without residual deficits; Z91.040 Latex allergy status; Z91.011 Allergy to milk products; Z91.018 Allergy to other foods; Z91.012 Allergy to eggs; Z91.013 Allergy to seafood; Z79.01 Long term (current) use of anticoagulants; Z79.899 Other long term (current) drug therapy; Z90.710 Acquired absence of both cervix and uterus; Z98.890 Other specified postprocedural states; Z96.659 Presence of unspecified artificial knee joint; Z98.84 Bariatric surgery status
CPT/HCPCS: 36415; 71045; 80053; 83605; 83690; 83880; 84484; 85025; 85610; 86850; 86900; 86901; 86920 ×2; 93005; 99285; J1940; 36430; 80048; 81001; 83735; 85014; 85018; 93010; A9270-GY; J3475; P9016

== ENCOUNTER 2024-03-23 14:48 | Emergency (ER) | payer MEDICAID, MEDICARE ==
[2024-03-23] MEDS ORDERED: Sodium Chloride 0.9% 2.5 ML Syringe FLUSH PRN (15:25)
[2024-03-23] MEDS ORDERED: Sodium Chloride 0.9% 10 ML Syringe FLUSH PRN (15:25)
[2024-03-23 16:50] LABS: INR 4.81 (0.86-1.11)
[2024-03-23 17:14] LABS: MAGNESIUM 1.7 mg/dL (1.8-2.4)
[2024-03-23 17:52] LABS: A/G RATIO 0.8 (0.9-1.6); ALBUMIN 3.1 g/dL (3.4-5.0); BILIRUBIN TOTAL 1.2 mg/dL (0.2-1.0); CALCIUM 8.9 mg/dL (8.5-10.1); CARBON DIOXIDE,CO2 21.3 mmol/L (21.0-32.0); EST CRCL DRUG DOSING (CG) 11.24 mL/min; POTASSIUM,K 4.8 mmol/L (3.5-5.1); PROTEIN TOTAL,TP 7.1 g/dL (6.4-8.2)
[2024-03-23] MEDS: Magnesium Oxide 400 MG Tab PO STA (18:01)
[2024-03-23 18:04] VITALS: BP 153/62; PULSE 80
== END 2024-03-23 18:04 | disposition home or self-care (01) ==
LOC: MW.ED 14:48
DX: E83.42 Hypomagnesemia (principal); D63.8 Anemia in other chronic diseases classified elsewhere; R79.1 Abnormal coagulation profile; I12.0 Hypertensive chronic kidney disease with stage 5 chronic kidney disease or end stage renal disease; J45.909 Unspecified asthma, uncomplicated; E66.9 Obesity, unspecified; E11.22 Type 2 diabetes mellitus with diabetic chronic kidney disease; Z75.8 Other problems related to medical facilities and other health care; Z88.0 Allergy status to penicillin; Z88.2 Allergy status to sulfonamides; Z91.011 Allergy to milk products; Z91.013 Allergy to seafood; Z91.012 Allergy to eggs; Z91.018 Allergy to other foods; Z91.040 Latex allergy status; Z91.09 Other allergy status, other than to drugs and biological substances; Z91.048 Other nonmedicinal substance allergy status; Z88.8 Allergy status to other drugs, medicaments and biological substances; Z79.01 Long term (current) use of anticoagulants; Z79.899 Other long term (current) drug therapy; Z90.710 Acquired absence of both cervix and uterus; Z68.41 Body mass index [BMI] 40.0-44.9, adult; N18.4 Chronic kidney disease, stage 4 (severe); D63.1 Anemia in chronic kidney disease
CPT/HCPCS: 36415; 71045; 80053; 80069; 81001; 82306; 82570; 82728; 83550; 83690; 83735; 83970; 84156; 84484; 85025; 85610; 87428; 93005; 99285; A9270; 93010; 99284

== ENCOUNTER 2024-07-05 10:27 | Inpatient (IN) | payer MEDICARE ==
[2024-07-05 12:44] LABS: HEMOGLOBIN 6.4 g/dL (12.0-16.0); IMMATURE GRAN ABSOLUTE AUTO 0.02 K/uL (0.00-0.05); IMMATURE GRAN PERCENT AUTO 0.3 % (0.0-0.4); LYMPHOCYTES ABSOLUTE AUTO 0.43 K/uL (1.00-4.80); LYMPHOCYTES PERCENT AUTO 6.3 % (24.0-44.0); MEAN CORPUSCULAR HGB CONC 30.5 g/dL (32.0-36.0); MEAN CORPUSCULAR VOLUME 88.6 fL (83.0-99.0); MEAN PLATELET VOLUME 10.3 fL (9.4-12.3); MONOCYTES ABSOLUTE AUTO 0.49 K/uL (0.00-0.80); MONOCYTES PERCENT AUTO 7.2 % (0.0-8.0); NEUTROPHILS ABSOLUTE AUTO 5.84 K/uL (1.80-7.70); NEUTROPHILS PERCENT AUTO 86.2 % (41.0-71.0); PLATELET COUNT,PLT 131 K/uL (150-400); RED BLOOD CELL COUNT 2.37 M/uL (4.10-5.30); WHITE BLOOD CELL COUNT,WBC 6.78 K/uL (3.9-11.3)
[2024-07-05 13:06] LABS: INR 1.84 (0.86-1.11); PTT,PARTIAL THROMBOPLSTIN TIME 30.9 SEC (23.9-30.7)
[2024-07-05 13:27] LABS: A/G RATIO 0.7 (0.9-1.6); ALBUMIN 2.8 g/dL (3.4-5.0); BILIRUBIN TOTAL 2.8 mg/dL (0.2-1.0); CALCIUM 8.2 mg/dL (8.5-10.1); CARBON DIOXIDE,CO2 20.8 mmol/L (21.0-32.0); CREATININE 3.5 mg/dL (0.6-1.0); EST CRCL DRUG DOSING (CG) 13.43 mL/min; POTASSIUM,K 4.1 mmol/L (3.5-5.1); PROTEIN TOTAL,TP 7.1 g/dL (6.4-8.2)
[2024-07-05] MEDS ORDERED: Ondansetron 4 MG/2 ML SDV IVPUSH PRN (15:50)
[2024-07-05] MEDS ORDERED: Melatonin 3 MG Tab PO PRN (15:50)
[2024-07-05] MEDS ORDERED: Sodium Chloride 0.9% 10 ML Syringe FLUSH PRN (15:50)
[2024-07-05] MEDS ORDERED: Polyethylene Glycol 3350 Powder 17 GM Packet PO PRN (15:50)
[2024-07-05] MEDS ORDERED: Docusate Sodium 100 MG Cap PO PRN (15:50)
[2024-07-05] MEDS ORDERED: Albuterol 0.083% 2.5 MG/3 ML Neb Soln NEB PRN (15:50)
[2024-07-05] MEDS ORDERED: Sodium Chloride 0.9% 2.5 ML Syringe FLUSH PRN (15:50)
[2024-07-05] MEDS ORDERED: Albuterol 8 GM Inhaler INH PRN (15:53)
[2024-07-05] MEDS ORDERED: Allopurinol 100 MG Tab PO PRN (15:53)
[2024-07-05] MEDS ORDERED: Cyclobenzaprine 10 MG Tab PO PRN (15:53)
[2024-07-05] MEDS ORDERED: traMADol 50 MG Tab PO PRN (15:53)
[2024-07-05] MEDS: Warfarin 2.5 MG Tab PO ONE (19:26)
[2024-07-05 19:48] LABS: APPEARANCE,URINE SLT CLOUDY; BILIRUBIN,URINE NEGATIVE (NEGATIVE); COLOR,URINE YELLOW; GLUCOSE,URINE NEGATIVE (NEGATIVE); KETONES,URINE NEGATIVE (NEGATIVE); LEUKOCYTE ESTERASE,URINE SMALL (NEGATIVE); NITRITE,URINE NEGATIVE (NEGATIVE); OCCULT BLOOD,URINE NEGATIVE (NEGATIVE); PROTEIN,URINE NEGATIVE (NEGATIVE); UROBILINOGEN,URINE 0.2 EU/dL (<2.0)
[2024-07-05 19:59] LABS: BACTERIA,URINE 3+ (NEGATIVE); EPITHELIAL CELLS,URINE RARE (NONE-FEW); MUCUS,URINE LIGHT (NONE-MOD); RBC,URINE NONE SEEN (0-2/HPF)
[2024-07-05] MEDS: Furosemide 40 MG/4 ML VIAL IVPUSH ONE ×4 (20:29→23:59)
[2024-07-05] MEDS: PARoxetine 20 MG Tab PO SCH (21:53)
[2024-07-06 03:48] LABS: HEMATOCRIT 27.4 % (37.0-47.0); HEMOGLOBIN 8.7 g/dL (12.0-16.0)
[2024-07-06 05:56] LABS: EOSINOPHILS ABSOLUTE AUTO 0.01 K/uL (0.00-0.45); EOSINOPHILS PERCENT AUTO 0.2 % (0.0-6.0); HEMATOCRIT 25.6 % (37.0-47.0); HEMOGLOBIN 8.1 g/dL (12.0-16.0); IMMATURE GRAN ABSOLUTE AUTO 0.02 K/uL (0.00-0.05); IMMATURE GRAN PERCENT AUTO 0.4 % (0.0-0.4); LYMPHOCYTES ABSOLUTE AUTO 0.49 K/uL (1.00-4.80); LYMPHOCYTES PERCENT AUTO 8.8 % (24.0-44.0); MEAN CORPUSCULAR HEMOGLOBIN 27.8 pg (28.0-32.0); MEAN CORPUSCULAR HGB CONC 31.6 g/dL (32.0-36.0); MEAN PLATELET VOLUME 9.4 fL (9.4-12.3); MONOCYTES ABSOLUTE AUTO 0.45 K/uL (0.00-0.80); MONOCYTES PERCENT AUTO 8.1 % (0.0-8.0); NEUTROPHILS ABSOLUTE AUTO 4.57 K/uL (1.80-7.70); NEUTROPHILS PERCENT AUTO 82.5 % (41.0-71.0); PLATELET COUNT,PLT 84 K/uL (150-400); RED BLOOD CELL COUNT 2.91 M/uL (4.10-5.30); WHITE BLOOD CELL COUNT,WBC 5.54 K/uL (3.9-11.3)
[2024-07-06 06:10] LABS: INR 2.01 (0.86-1.11)
[2024-07-06 06:25] LABS: A/G RATIO 0.6 (0.9-1.6); ALBUMIN 2.6 g/dL (3.4-5.0); CALCIUM 7.9 mg/dL (8.5-10.1); CARBON DIOXIDE,CO2 22.3 mmol/L (21.0-32.0); CREATININE 3.9 mg/dL (0.6-1.0); EST CRCL DRUG DOSING (CG) 11.43 mL/min; POTASSIUM,K 4.2 mmol/L (3.5-5.1); PROTEIN TOTAL,TP 6.7 g/dL (6.4-8.2)
[2024-07-06] MEDS: Furosemide 40 MG/4 ML VIAL IVPUSH ONE (10:12)
[2024-07-06] MEDS: Warfarin 2.5 MG Tab PO ONE (13:21)
[2024-07-06] MEDS: Furosemide 40 MG/4 ML VIAL IVPUSH SCH (13:24)
[2024-07-06] MEDS: Warfarin Sliding Scale PO SCH (13:33)
[2024-07-06] MEDS: Acetaminophen 325 MG Tab PO PRN (18:09)
[2024-07-07 05:25] LABS: EOSINOPHILS ABSOLUTE AUTO 0.12 K/uL (0.00-0.45); EOSINOPHILS PERCENT AUTO 2.8 % (0.0-6.0); HEMATOCRIT 27.6 % (37.0-47.0); HEMOGLOBIN 8.7 g/dL (12.0-16.0); IMMATURE GRAN ABSOLUTE AUTO 0.01 K/uL (0.00-0.05); IMMATURE GRAN PERCENT AUTO 0.2 % (0.0-0.4); LYMPHOCYTES ABSOLUTE AUTO 0.54 K/uL (1.00-4.80); LYMPHOCYTES PERCENT AUTO 12.6 % (24.0-44.0); MEAN CORPUSCULAR HEMOGLOBIN 27.7 pg (28.0-32.0); MEAN CORPUSCULAR HGB CONC 31.5 g/dL (32.0-36.0); MEAN CORPUSCULAR VOLUME 87.9 fL (83.0-99.0); MEAN PLATELET VOLUME 8.9 fL (9.4-12.3); MONOCYTES ABSOLUTE AUTO 0.35 K/uL (0.00-0.80); MONOCYTES PERCENT AUTO 8.2 % (0.0-8.0); NEUTROPHILS ABSOLUTE AUTO 3.27 K/uL (1.80-7.70); NEUTROPHILS PERCENT AUTO 76.2 % (41.0-71.0); PLATELET COUNT,PLT 65 K/uL (150-400); RED BLOOD CELL COUNT 3.14 M/uL (4.10-5.30); WHITE BLOOD CELL COUNT,WBC 4.29 K/uL (3.9-11.3)
[2024-07-07 05:38] LABS: INR 1.95 (0.86-1.11)
[2024-07-07 05:56] LABS: A/G RATIO 0.6 (0.9-1.6); ALBUMIN 2.6 g/dL (3.4-5.0); BILIRUBIN TOTAL 2.6 mg/dL (0.2-1.0); CALCIUM 7.7 mg/dL (8.5-10.1); CARBON DIOXIDE,CO2 19.3 mmol/L (21.0-32.0); CREATININE 3.9 mg/dL (0.6-1.0); EST CRCL DRUG DOSING (CG) 11.43 mL/min; POTASSIUM,K 3.9 mmol/L (3.5-5.1); PROTEIN TOTAL,TP 6.9 g/dL (6.4-8.2)
[2024-07-07] MEDS: Warfarin 2.5 MG Tab PO ONE (14:41)
[2024-07-08 06:11] LABS: BASOPHILS ABSOLUTE AUTO 0.02 K/uL (0.00-0.20); BASOPHILS PERCENT AUTO 0.3 % (0.0-1.0); EOSINOPHILS ABSOLUTE AUTO 0.28 K/uL (0.00-0.45); EOSINOPHILS PERCENT AUTO 4.5 % (0.0-6.0); HEMATOCRIT 30.5 % (37.0-47.0); HEMOGLOBIN 9.8 g/dL (12.0-16.0); IMMATURE GRAN ABSOLUTE AUTO 0.07 K/uL (0.00-0.05); IMMATURE GRAN PERCENT AUTO 1.1 % (0.0-0.4); LYMPHOCYTES ABSOLUTE AUTO 0.82 K/uL (1.00-4.80); LYMPHOCYTES PERCENT AUTO 13.2 % (24.0-44.0); MEAN CORPUSCULAR HEMOGLOBIN 27.9 pg (28.0-32.0); MEAN CORPUSCULAR HGB CONC 32.1 g/dL (32.0-36.0); MEAN CORPUSCULAR VOLUME 86.9 fL (83.0-99.0); MEAN PLATELET VOLUME 10.9 fL (9.4-12.3); MONOCYTES ABSOLUTE AUTO 0.47 K/uL (0.00-0.80); MONOCYTES PERCENT AUTO 7.5 % (0.0-8.0); NEUTROPHILS ABSOLUTE AUTO 4.57 K/uL (1.80-7.70); NEUTROPHILS PERCENT AUTO 73.4 % (41.0-71.0); PLATELET COUNT,PLT 79 K/uL (150-400); RED BLOOD CELL COUNT 3.51 M/uL (4.10-5.30); WHITE BLOOD CELL COUNT,WBC 6.23 K/uL (3.9-11.3)
[2024-07-08 07:06] LABS: A/G RATIO 0.7 (0.9-1.6); BILIRUBIN TOTAL 2.6 mg/dL (0.2-1.0); CALCIUM 7.7 mg/dL (8.5-10.1); CARBON DIOXIDE,CO2 21.6 mmol/L (21.0-32.0); EST CRCL DRUG DOSING (CG) 11.75 mL/min; POTASSIUM,K 3.8 mmol/L (3.5-5.1); PROTEIN TOTAL,TP 7.2 g/dL (6.4-8.2)
[2024-07-08] MEDS: cefTRIAXone 1 GM in Sodium Chloride 0.9% 50 ML IV SCH (11:09)
[2024-07-08 13:21] LABS: INR 1.81 (0.86-1.11)
[2024-07-08] MEDS: Warfarin 2.5 MG Tab PO ONE (14:22)
[2024-07-09 05:55] LABS: BASOPHILS ABSOLUTE AUTO 0.01 K/uL (0.00-0.20); BASOPHILS PERCENT AUTO 0.1 % (0.0-1.0); EOSINOPHILS ABSOLUTE AUTO 0.38 K/uL (0.00-0.45); EOSINOPHILS PERCENT AUTO 5.3 % (0.0-6.0); HEMATOCRIT 28.5 % (37.0-47.0); IMMATURE GRAN ABSOLUTE AUTO 0.02 K/uL (0.00-0.05); IMMATURE GRAN PERCENT AUTO 0.3 % (0.0-0.4); LYMPHOCYTES ABSOLUTE AUTO 0.74 K/uL (1.00-4.80); LYMPHOCYTES PERCENT AUTO 10.4 % (24.0-44.0); MEAN CORPUSCULAR HEMOGLOBIN 27.9 pg (28.0-32.0); MEAN CORPUSCULAR HGB CONC 31.6 g/dL (32.0-36.0); MEAN CORPUSCULAR VOLUME 88.2 fL (83.0-99.0); MEAN PLATELET VOLUME 9.3 fL (9.4-12.3); MONOCYTES ABSOLUTE AUTO 0.66 K/uL (0.00-0.80); MONOCYTES PERCENT AUTO 9.3 % (0.0-8.0); NEUTROPHILS ABSOLUTE AUTO 5.32 K/uL (1.80-7.70); NEUTROPHILS PERCENT AUTO 74.6 % (41.0-71.0); PLATELET COUNT,PLT 73 K/uL (150-400); RED BLOOD CELL COUNT 3.23 M/uL (4.10-5.30); WHITE BLOOD CELL COUNT,WBC 7.13 K/uL (3.9-11.3)
[2024-07-09 06:12] LABS: INR 1.8 (0.86-1.11)
[2024-07-09 06:27] LABS: A/G RATIO 0.6 (0.9-1.6); ALBUMIN 2.6 g/dL (3.4-5.0); BILIRUBIN TOTAL 1.9 mg/dL (0.2-1.0); CALCIUM 7.2 mg/dL (8.5-10.1); CARBON DIOXIDE,CO2 24.4 mmol/L (21.0-32.0); CREATININE 3.7 mg/dL (0.6-1.0); EST CRCL DRUG DOSING (CG) 12.71 mL/min; POTASSIUM,K 3.4 mmol/L (3.5-5.1)
[2024-07-09] MEDS: Potassium Chloride 20 MEQ Tab.ER PO ONE (07:46)
[2024-07-09] MEDS: Warfarin 2.5 MG Tab PO ONE (13:28)
[2024-07-09] MEDS: amLODIPine 5 MG Tab PO SCH (21:12)
[2024-07-10 06:35] LABS: BASOPHILS ABSOLUTE AUTO 0.02 K/uL (0.00-0.20); BASOPHILS PERCENT AUTO 0.3 % (0.0-1.0); EOSINOPHILS ABSOLUTE AUTO 0.26 K/uL (0.00-0.45); EOSINOPHILS PERCENT AUTO 3.7 % (0.0-6.0); HEMATOCRIT 27.6 % (37.0-47.0); HEMOGLOBIN 8.6 g/dL (12.0-16.0); IMMATURE GRAN ABSOLUTE AUTO 0.02 K/uL (0.00-0.05); IMMATURE GRAN PERCENT AUTO 0.3 % (0.0-0.4); LYMPHOCYTES ABSOLUTE AUTO 0.58 K/uL (1.00-4.80); LYMPHOCYTES PERCENT AUTO 8.4 % (24.0-44.0); MEAN CORPUSCULAR HEMOGLOBIN 27.4 pg (28.0-32.0); MEAN CORPUSCULAR HGB CONC 31.2 g/dL (32.0-36.0); MEAN CORPUSCULAR VOLUME 87.9 fL (83.0-99.0); MEAN PLATELET VOLUME 10.1 fL (9.4-12.3); MONOCYTES ABSOLUTE AUTO 0.55 K/uL (0.00-0.80); MONOCYTES PERCENT AUTO 7.9 % (0.0-8.0); NEUTROPHILS ABSOLUTE AUTO 5.51 K/uL (1.80-7.70); NEUTROPHILS PERCENT AUTO 79.4 % (41.0-71.0); PLATELET COUNT,PLT 75 K/uL (150-400); RED BLOOD CELL COUNT 3.14 M/uL (4.10-5.30); WHITE BLOOD CELL COUNT,WBC 6.94 K/uL (3.9-11.3)
[2024-07-10 06:44] LABS: INR 1.68 (0.86-1.11)
[2024-07-10 06:59] LABS: A/G RATIO 0.6 (0.9-1.6); ALBUMIN 2.6 g/dL (3.4-5.0); BILIRUBIN TOTAL 1.6 mg/dL (0.2-1.0); CALCIUM 7.4 mg/dL (8.5-10.1); CARBON DIOXIDE,CO2 25.6 mmol/L (21.0-32.0); CREATININE 3.6 mg/dL (0.6-1.0); EST CRCL DRUG DOSING (CG) 13.06 mL/min; MAGNESIUM 1.3 mg/dL (1.8-2.4); POTASSIUM,K 3.6 mmol/L (3.5-5.1); PROTEIN TOTAL,TP 6.8 g/dL (6.4-8.2)
[2024-07-10] MEDS: Warfarin 2.5 MG Tab PO ONE (14:13)
[2024-07-10] MEDS: Magnesium Sulf/Wat 2 GM/50 mL 2 GM in Premix Bag 1 BAG IV ONE (20:12)
[2024-07-11 06:11] LABS: BASOPHILS ABSOLUTE AUTO 0.02 K/uL (0.00-0.20); BASOPHILS PERCENT AUTO 0.3 % (0.0-1.0); EOSINOPHILS PERCENT AUTO 4.1 % (0.0-6.0); HEMATOCRIT 27.1 % (37.0-47.0); HEMOGLOBIN 8.6 g/dL (12.0-16.0); IMMATURE GRAN ABSOLUTE AUTO 0.02 K/uL (0.00-0.05); IMMATURE GRAN PERCENT AUTO 0.3 % (0.0-0.4); LYMPHOCYTES ABSOLUTE AUTO 0.65 K/uL (1.00-4.80); LYMPHOCYTES PERCENT AUTO 8.8 % (24.0-44.0); MEAN CORPUSCULAR HEMOGLOBIN 27.8 pg (28.0-32.0); MEAN CORPUSCULAR HGB CONC 31.7 g/dL (32.0-36.0); MEAN CORPUSCULAR VOLUME 87.7 fL (83.0-99.0); MEAN PLATELET VOLUME 9.8 fL (9.4-12.3); MONOCYTES PERCENT AUTO 8.1 % (0.0-8.0); NEUTROPHILS PERCENT AUTO 78.4 % (41.0-71.0); PLATELET COUNT,PLT 82 K/uL (150-400); RED BLOOD CELL COUNT 3.09 M/uL (4.10-5.30); WHITE BLOOD CELL COUNT,WBC 7.39 K/uL (3.9-11.3)
[2024-07-11 06:34] LABS: INR 1.77 (0.86-1.11)
[2024-07-11 06:45] LABS: A/G RATIO 0.6 (0.9-1.6); ALBUMIN 2.6 g/dL (3.4-5.0); BILIRUBIN TOTAL 1.5 mg/dL (0.2-1.0); CALCIUM 7.6 mg/dL (8.5-10.1); CREATININE 3.5 mg/dL (0.6-1.0); EST CRCL DRUG DOSING (CG) 13.43 mL/min; MAGNESIUM 1.6 mg/dL (1.8-2.4); POTASSIUM,K 3.4 mmol/L (3.5-5.1)
[2024-07-11] MEDS ORDERED: Potassium Chloride 10 MEQ in Premix Bag 1 BAG IV SCH (07:00)
[2024-07-11] MEDS: Potassium Chloride 20 MEQ Tab.ER PO ONE (08:53)
[2024-07-11] MEDS: Potassium Chloride 10 MEQ in Premix Bag 1 BAG IV SCH (08:59)
[2024-07-11] MEDS: Magnesium Sulf/Wat 2 GM/50 mL 2 GM in Premix Bag 1 BAG IV ONE (09:31)
[2024-07-11] MEDS: Sodium Chloride 0.9% 500 ML IV ONE (09:32)
[2024-07-11 11:25] VITALS: PULSE 86
[2024-07-11] MEDS: Warfarin 2.5 MG Tab PO ONE (13:26)
[2024-07-11] MEDS ORDERED: Warfarin 2.5 MG Tab PO ONE (14:00)
[2024-07-11 16:37] VITALS: BP 143/65
== END 2024-07-11 16:40 | disposition home health service (06) | DRG 291 ==
LOC: MW.ED 10:27 → MW.MS 15:40
PROVIDERS: ADMIT Internal Medicine; ATTEND Internal Medicine
PROC: 30233N1 Transfusion of Nonautologous Red Blood Cells into Peripheral Vein, Percutaneous Approach (ICD-10-PCS; principal; 2024-07-05)
DX: S42.002A Fracture of unspecified part of left clavicle, initial encounter for closed fracture (principal); I11.0 Hypertensive heart disease with heart failure; I50.9 Heart failure, unspecified; D64.9 Anemia, unspecified; I13.0 Hypertensive heart and chronic kidney disease with heart failure and stage 1 through stage 4 chronic kidney disease, or unspecified chronic kidney disease; E66.9 Obesity, unspecified; I50.33 Acute on chronic diastolic (congestive) heart failure; N18.5 Chronic kidney disease, stage 5; Z91.018 Allergy to other foods; D63.1 Anemia in chronic kidney disease; Z91.09 Other allergy status, other than to drugs and biological substances; Z91.048 Other nonmedicinal substance allergy status; S42.009A Fracture of unspecified part of unspecified clavicle, initial encounter for closed fracture; Z68.38 Body mass index [BMI] 38.0-38.9, adult; Z66 Do not resuscitate; J45.909 Unspecified asthma, uncomplicated; K21.9 Gastro-esophageal reflux disease without esophagitis; M54.9 Dorsalgia, unspecified; Z75.3 Unavailability and inaccessibility of health-care facilities; G89.29 Other chronic pain; Z68.41 Body mass index [BMI] 40.0-44.9, adult; W19.XXXA Unspecified fall, initial encounter; Z95.2 Presence of prosthetic heart valve; M10.9 Gout, unspecified; M19.90 Unspecified osteoarthritis, unspecified site; E66.01 Morbid (severe) obesity due to excess calories; M81.0 Age-related osteoporosis without current pathological fracture; E66.813 Obesity, class 3; D69.6 Thrombocytopenia, unspecified; G43.909 Migraine, unspecified, not intractable, without status migrainosus; E11.22 Type 2 diabetes mellitus with diabetic chronic kidney disease; F32.A Depression, unspecified; Z90.49 Acquired absence of other specified parts of digestive tract; Z79.01 Long term (current) use of anticoagulants; Z90.710 Acquired absence of both cervix and uterus; Z88.0 Allergy status to penicillin; Z86.718 Personal history of other venous thrombosis and embolism; Z86.73 Personal history of transient ischemic attack (TIA), and cerebral infarction without residual deficits; Z91.012 Allergy to eggs; Z91.040 Latex allergy status; Z91.013 Allergy to seafood; Z91.011 Allergy to milk products; Z88.8 Allergy status to other drugs, medicaments and biological substances; Z88.2 Allergy status to sulfonamides; Z79.899 Other long term (current) drug therapy; Z96.659 Presence of unspecified artificial knee joint; Z60.2 Problems related to living alone
CPT/HCPCS: 36410; 36415; 36430; 51702; 70450; 70450-26; 71045; 71045-26; 73030-26-LT; 73030-LT; 80053; 81001; 83735; 83880; 84484; 85014; 85018; 85025; 85610; 85730; 86850; 86900; 86901; 86920; 87086; 87088; 87186; 87428-QW; 93306; 97110-GO; 97110-GP; 97162-GP; 97165-GO; 97530-GP; 99222; 99232; 99239; 99284; A9270-GY; J0696; J1940; J3475; P9016

== ENCOUNTER 2024-08-08 12:33 | Inpatient (IN) | payer MEDICARE ==
[2024-08-08 13:44] LABS: BASOPHILS ABSOLUTE AUTO 0.02 K/uL (0.00-0.20); BASOPHILS PERCENT AUTO 0.3 % (0.0-1.0); EOSINOPHILS ABSOLUTE AUTO 0.07 K/uL (0.00-0.45); EOSINOPHILS PERCENT AUTO 0.9 % (0.0-6.0); HEMATOCRIT 20.5 % (37.0-47.0); HEMOGLOBIN 6.3 g/dL (12.0-16.0); IMMATURE GRAN ABSOLUTE AUTO 0.07 K/uL (0.00-0.05); IMMATURE GRAN PERCENT AUTO 0.9 % (0.0-0.4); LYMPHOCYTES ABSOLUTE AUTO 0.82 K/uL (1.00-4.80); LYMPHOCYTES PERCENT AUTO 10.3 % (24.0-44.0); MEAN CORPUSCULAR HEMOGLOBIN 28.8 pg (28.0-32.0); MEAN CORPUSCULAR HGB CONC 30.7 g/dL (32.0-36.0); MEAN CORPUSCULAR VOLUME 93.6 fL (83.0-99.0); MEAN PLATELET VOLUME 9.9 fL (9.4-12.3); MONOCYTES ABSOLUTE AUTO 0.67 K/uL (0.00-0.80); MONOCYTES PERCENT AUTO 8.4 % (0.0-8.0); NEUTROPHILS ABSOLUTE AUTO 6.28 K/uL (1.80-7.70); NEUTROPHILS PERCENT AUTO 79.2 % (41.0-71.0); PLATELET COUNT,PLT 142 K/uL (150-400); RED BLOOD CELL COUNT 2.19 M/uL (4.10-5.30); WHITE BLOOD CELL COUNT,WBC 7.93 K/uL (3.9-11.3)
[2024-08-08] MEDS: Silver Nitrate Applicator Each TOP ONE (13:45)
[2024-08-08 14:03] LABS: CALCIUM 8.2 mg/dL (8.5-10.1); CARBON DIOXIDE,CO2 25.5 mmol/L (21.0-32.0); CREATININE 4.1 mg/dL (0.6-1.0); EST CRCL DRUG DOSING (CG) 11.47 mL/min; POTASSIUM,K 3.9 mmol/L (3.5-5.1)
[2024-08-08 14:42] LABS: INR 4.35 (0.86-1.11); PTT,PARTIAL THROMBOPLSTIN TIME 46.4 SEC (23.9-30.7)
[2024-08-08 15:05] LABS: CALCIUM 8.2 mg/dL (8.5-10.1); CARBON DIOXIDE,CO2 25.5 mmol/L (21.0-32.0); CREATININE 4.1 mg/dL (0.6-1.0); EST CRCL DRUG DOSING (CG) 11.47 mL/min; POTASSIUM,K 3.9 mmol/L (3.5-5.1)
[2024-08-08 15:08] LABS: A/G RATIO 0.6 (0.9-1.6); ALBUMIN 2.5 g/dL (3.4-5.0); BILIRUBIN TOTAL 2.1 mg/dL (0.2-1.0); PROTEIN TOTAL,TP 6.6 g/dL (6.4-8.2)
[2024-08-08] MEDS ORDERED: Acetaminophen 325 MG Tab PO PRN (16:34)
[2024-08-08] MEDS ORDERED: Sodium Chloride 0.9% 10 ML Syringe FLUSH PRN (16:34)
[2024-08-08] MEDS ORDERED: Sodium Chloride 0.9% 2.5 ML Syringe FLUSH PRN (16:34)
[2024-08-08] MEDS ORDERED: Albuterol 8 GM Inhaler INH PRN (16:40)
[2024-08-08] MEDS: amLODIPine 5 MG Tab PO SCH (22:01)
[2024-08-08] MEDS: PARoxetine 20 MG Tab PO SCH (22:01)
[2024-08-08] MEDS: Furosemide 40 MG/4 ML VIAL IVPUSH ONE (23:46)
[2024-08-09] MEDS: Sodium Ferric Gluconate Cmplex 125 MG in Sodium Chloride 0.9% 100 ML IV ONE (03:32)
[2024-08-09 05:35] LABS: BASOPHILS ABSOLUTE AUTO 0.04 K/uL (0.00-0.20); BASOPHILS PERCENT AUTO 0.5 % (0.0-1.0); EOSINOPHILS ABSOLUTE AUTO 0.14 K/uL (0.00-0.45); EOSINOPHILS PERCENT AUTO 1.8 % (0.0-6.0); HEMOGLOBIN 7.7 g/dL (12.0-16.0); IMMATURE GRAN ABSOLUTE AUTO 0.08 K/uL (0.00-0.05); LYMPHOCYTES ABSOLUTE AUTO 1.07 K/uL (1.00-4.80); LYMPHOCYTES PERCENT AUTO 13.7 % (24.0-44.0); MEAN CORPUSCULAR HEMOGLOBIN 30.2 pg (28.0-32.0); MEAN CORPUSCULAR HGB CONC 33.5 g/dL (32.0-36.0); MEAN CORPUSCULAR VOLUME 90.2 fL (83.0-99.0); MEAN PLATELET VOLUME 9.4 fL (9.4-12.3); MONOCYTES ABSOLUTE AUTO 0.88 K/uL (0.00-0.80); MONOCYTES PERCENT AUTO 11.3 % (0.0-8.0); NEUTROPHILS PERCENT AUTO 71.7 % (41.0-71.0); PLATELET COUNT,PLT 101 K/uL (150-400); RED BLOOD CELL COUNT 2.55 M/uL (4.10-5.30); WHITE BLOOD CELL COUNT,WBC 7.81 K/uL (3.9-11.3)
[2024-08-09 05:48] LABS: INR 4.32 (0.86-1.11)
[2024-08-09 05:52] LABS: CALCIUM 7.8 mg/dL (8.5-10.1); CREATININE 4.1 mg/dL (0.6-1.0); EST CRCL DRUG DOSING (CG) 11.47 mL/min; POTASSIUM,K 3.8 mmol/L (3.5-5.1)
[2024-08-09] MEDS: Allopurinol 100 MG Tab PO SCH (09:46)
[2024-08-09] MEDS: Torsemide 20 MG Tab PO SCH (09:47)
[2024-08-09] MEDS: Furosemide 40 MG/4 ML VIAL IVPUSH ONE ×3 (12:26→18:14)
[2024-08-09] MEDS: Sodium Ferric Gluconate Cmplex 125 MG in Sodium Chloride 0.9% 100 ML IV SCH (14:07)
[2024-08-09] MEDS: Warfarin Sliding Scale SCH (14:42)
[2024-08-09] MEDS: Ondansetron 4 MG/2 ML SDV IVPUSH PRN (15:31)
[2024-08-09] MEDS: traMADol 50 MG Tab PO PRN (21:01)
[2024-08-10 05:51] LABS: BASOPHILS ABSOLUTE AUTO 0.01 K/uL (0.00-0.20); BASOPHILS PERCENT AUTO 0.1 % (0.0-1.0); EOSINOPHILS ABSOLUTE AUTO 0.01 K/uL (0.00-0.45); EOSINOPHILS PERCENT AUTO 0.1 % (0.0-6.0); HEMATOCRIT 29.5 % (37.0-47.0); HEMOGLOBIN 10.3 g/dL (12.0-16.0); IMMATURE GRAN ABSOLUTE AUTO 0.08 K/uL (0.00-0.05); IMMATURE GRAN PERCENT AUTO 0.9 % (0.0-0.4); LYMPHOCYTES ABSOLUTE AUTO 0.65 K/uL (1.00-4.80); LYMPHOCYTES PERCENT AUTO 7.3 % (24.0-44.0); MEAN CORPUSCULAR HGB CONC 34.9 g/dL (32.0-36.0); MEAN PLATELET VOLUME 9.7 fL (9.4-12.3); MONOCYTES ABSOLUTE AUTO 0.51 K/uL (0.00-0.80); MONOCYTES PERCENT AUTO 5.7 % (0.0-8.0); NEUTROPHILS ABSOLUTE AUTO 7.68 K/uL (1.80-7.70); NEUTROPHILS PERCENT AUTO 85.9 % (41.0-71.0); NRBC ABSOLUTE 0.02 K/uL (0.00-0.02); NRBC PERCENT 0.2 /100WBC (0.0-0.2); PLATELET COUNT,PLT 105 K/uL (150-400); RED BLOOD CELL COUNT 3.43 M/uL (4.10-5.30); WHITE BLOOD CELL COUNT,WBC 8.94 K/uL (3.9-11.3)
[2024-08-10 06:01] LABS: INR 3.3 (0.86-1.11)
[2024-08-10 06:15] LABS: CALCIUM 8.4 mg/dL (8.5-10.1); CARBON DIOXIDE,CO2 22.8 mmol/L (21.0-32.0); CREATININE 4.4 mg/dL (0.6-1.0); EST CRCL DRUG DOSING (CG) 10.68 mL/min; POTASSIUM,K 3.6 mmol/L (3.5-5.1)
[2024-08-10] MEDS: Metoclopramide 10 MG/2 ML SDV IVPUSH PRN (08:12)
[2024-08-10 12:03] LABS: A/G RATIO 0.6 (0.9-1.6); ALBUMIN 2.6 g/dL (3.4-5.0); BILIRUBIN DIRECT 1.4 mg/dL (0.0-0.5); BILIRUBIN INDIRECT 2.1; BILIRUBIN TOTAL 3.5 mg/dL (0.2-1.0); PROTEIN TOTAL,TP 6.8 g/dL (6.4-8.2); TSH ULTRASENSITIVE 6.68 uIU/mL (0.36-3.74)
[2024-08-10 12:22] VITALS: BP 162/76; PULSE 96
[2024-08-10 12:22] LABS: T4 FREE 0.89 ng/dL (0.76-1.46)
[2024-08-10 12:42] LABS: BASE EXCESS ARTERIAL 0.7 (-2.0-3.0); BICARBONATE,ARTERIAL 23 mEq/L (21-28); PCO2 ARTERIAL 29 mmHG (35-45); PO2 ARTERIAL 85 mmHG (83-108)
[2024-08-10 13:07] LABS: APPEARANCE,URINE SLT CLOUDY; BILIRUBIN,URINE NEGATIVE (NEGATIVE); COLOR,URINE YELLOW; GLUCOSE,URINE NEGATIVE (NEGATIVE); KETONES,URINE NEGATIVE (NEGATIVE); LEUKOCYTE ESTERASE,URINE TRACE (NEGATIVE); NITRITE,URINE NEGATIVE (NEGATIVE); OCCULT BLOOD,URINE SMALL (NEGATIVE); PH,URINE 6.5 (5.0-8.0); PROTEIN,URINE NEGATIVE (NEGATIVE); UROBILINOGEN,URINE 0.2 EU/dL (<2.0)
[2024-08-10 13:13] LABS: BACTERIA,URINE 3+ (NEGATIVE); EPITHELIAL CELLS,URINE RARE (NONE-FEW); RBC,URINE 0-2 (0-2/HPF)
[2024-08-10] MEDS: Lactulose Soln 10 GM/15 ML 15 ML UD Cup PO SCH (13:33)
[2024-08-10] MEDS: Lactulose Soln 10 GM/15 ML 15 ML UD Cup PO ONE (13:40)
[2024-08-10] MEDS: Warfarin** 1 MG TABLET PO SCH (14:00)
[2024-08-10] MEDS: Lactulose Soln 10 GM/15 ML 15 ML UD Cup ONE (16:15)
[2024-08-11] MEDS ORDERED: Lactulose Soln 10 GM/15 ML 15 ML UD Cup ONE (13:33)
== END 2024-08-10 16:10 | DRG 811 ==
LOC: MW.ED 12:33 → MW.MS 15:25
PROVIDERS: ADMIT Internal Medicine; ATTEND Internal Medicine
PROC: 4A033R1 Measurement of Arterial Saturation, Peripheral, Percutaneous Approach (ICD-10-PCS; principal; 2024-08-08)
PROC: 30233N1 Transfusion of Nonautologous Red Blood Cells into Peripheral Vein, Percutaneous Approach (ICD-10-PCS; 2024-08-08)
DX: R04.0 Epistaxis (principal); D64.9 Anemia, unspecified; I12.9 Hypertensive chronic kidney disease with stage 1 through stage 4 chronic kidney disease, or unspecified chronic kidney disease; N18.9 Chronic kidney disease, unspecified; D63.1 Anemia in chronic kidney disease; G93.41 Metabolic encephalopathy; Z91.018 Allergy to other foods; N18.5 Chronic kidney disease, stage 5; Z91.012 Allergy to eggs; I50.32 Chronic diastolic (congestive) heart failure; I13.2 Hypertensive heart and chronic kidney disease with heart failure and with stage 5 chronic kidney disease, or end stage renal disease; Z91.09 Other allergy status, other than to drugs and biological substances; N17.9 Acute kidney failure, unspecified; Z66 Do not resuscitate; Z68.38 Body mass index [BMI] 38.0-38.9, adult; R53.1 Weakness; E66.9 Obesity, unspecified; J45.909 Unspecified asthma, uncomplicated; K21.9 Gastro-esophageal reflux disease without esophagitis; M54.9 Dorsalgia, unspecified; G89.29 Other chronic pain; M19.90 Unspecified osteoarthritis, unspecified site; F32.A Depression, unspecified; E11.22 Type 2 diabetes mellitus with diabetic chronic kidney disease; G43.909 Migraine, unspecified, not intractable, without status migrainosus; M81.0 Age-related osteoporosis without current pathological fracture; R79.1 Abnormal coagulation profile; Z86.73 Personal history of transient ischemic attack (TIA), and cerebral infarction without residual deficits; Z88.0 Allergy status to penicillin; Z91.011 Allergy to milk products; Z91.040 Latex allergy status; Z91.013 Allergy to seafood; Z95.2 Presence of prosthetic heart valve; Z79.899 Other long term (current) drug therapy; Z86.718 Personal history of other venous thrombosis and embolism; Z88.8 Allergy status to other drugs, medicaments and biological substances; Z88.2 Allergy status to sulfonamides; Z79.01 Long term (current) use of anticoagulants; Z90.49 Acquired absence of other specified parts of digestive tract; Z98.890 Other specified postprocedural states; Z90.710 Acquired absence of both cervix and uterus
CPT/HCPCS: 30901; 36415; 36430; 36556; 36600; 51702; 51703; 70450; 70450-26; 71045; 71045-26; 71250; 71250-26; 74018; 74018-26; 74176; 74176-26; 80048; 80053; 80076; 81001; 82140; 82803; 84439; 84443; 85025; 85610; 85730; 86850; 86900; 86901; 86920; 87086; 99284; 99284-25; A9270-GY; J1938; J2405; J2765; J2916; P9016

== ENCOUNTER 2025-02-25 18:01 | Emergency (ER) | payer MEDICARE, MEDICAID ==
[2025-02-25 18:20] LABS: MEAN PLATELET VOLUME 11.7 fL (9.4-12.3); NRBC ABSOLUTE 0.00 K/uL (0.00-0.02); NRBC PERCENT 0.0 /100WBC (0.0-0.2); PLATELET COUNT,PLT 69 K/uL (150-400); RED BLOOD CELL COUNT 3.82 M/uL (4.10-5.30); WHITE BLOOD CELL COUNT,WBC 14.31 K/uL (3.9-11.3)
[2025-02-25 18:46] LABS: A/G RATIO 0.5 (0.9-1.6); ALANINE AMINOTRANSFERASE,ALT 33 IU/L (14-63); ASPARTATE AMNIOTRANSFERASE,AST 79 IU/L (15-37); BILIRUBIN TOTAL 3.3 mg/dL (0.2-1.0); BLOOD UREA NITROGEN,BUN 102 mg/dL (7.0-18.0); CARBON DIOXIDE,CO2 19.4 mmol/L (21.0-32.0); CHLORIDE,CL 90 mmol/L (98-107); CREATININE 10.3 mg/dL (0.6-1.0); GLUCOSE RANDOM 154 mg/dL (74-106); POTASSIUM,K 6.1 mmol/L (3.5-5.1); PROTEIN TOTAL,TP 7.7 g/dL (6.4-8.2); SODIUM,NA 132 mmol/L (136-145)
[2025-02-25 18:51] LABS: ESTIMATED GFR 4 mL/min (>60)
[2025-02-25 18:53] LABS: INR 3.29 (0.86-1.11); PTT,PARTIAL THROMBOPLSTIN TIME 43.3 SEC (23.9-30.7)
[2025-02-25 19:03] LABS: LACTIC ACID 5.2 mmol/L (0.4-2.0)
[2025-02-25] MEDS ORDERED: 50% Dextrose in Water 50 ML Syringe IVPUSH PRN (19:41)
[2025-02-25 20:01] LABS: LYMPHOCYTES ABSOLUTE MAN 0.29 K/uL (1.00-4.80); LYMPHOCYTES PERCENT MAN 2 % (24-44)
[2025-02-25 20:02] LABS: BAND ABSOLUTE MAN 1.00; BAND PERCENT MAN 7 %
[2025-02-25 20:03] LABS: MONOCYTES ABSOLUTE MAN 1.29 K/uL (0.00-0.80); MONOCYTES PERCENT MAN 9 % (0-8); SEG NEUTROPHILS ABSOLUTE MAN 11.73 K/uL (1.80-7.70); SEG NEUTROPHILS PERCENT MAN 82 % (41-71)
[2025-02-25] MEDS: Insulin Regular, Human 100 Units/ML 10 ML Vial IVPUSH ONE (20:07)
[2025-02-25] MEDS: 50% Dextrose in Water 50 ML Syringe IVPUSH ONE (20:10)
[2025-02-25] MEDS: Calcium Gluconate 10% 1 GM/10 ML SDV IV ONE (20:14)
[2025-02-25] MEDS: Norepinephrine Bit/D5W Premix 4 MG/250 ML BAG IV SCH (22:15)
[2025-02-25 22:51] VITALS: PULSE 107
[2025-02-25 23:06] VITALS: BP 81/43
== END 2025-02-26 00:26 ==
LOC: MW.ED 18:01
DX: T79.6XXA Traumatic ischemia of muscle, initial encounter (principal); I95.9 Hypotension, unspecified; E87.5 Hyperkalemia; J45.909 Unspecified asthma, uncomplicated; I12.9 Hypertensive chronic kidney disease with stage 1 through stage 4 chronic kidney disease, or unspecified chronic kidney disease; N18.9 Chronic kidney disease, unspecified; E11.22 Type 2 diabetes mellitus with diabetic chronic kidney disease; E66.9 Obesity, unspecified; Z86.73 Personal history of transient ischemic attack (TIA), and cerebral infarction without residual deficits; K21.9 Gastro-esophageal reflux disease without esophagitis; Z90.710 Acquired absence of both cervix and uterus; Z79.899 Other long term (current) drug therapy; Z88.8 Allergy status to other drugs, medicaments and biological substances; Z91.0120 Allergy to eggs, unspecified; Z88.2 Allergy status to sulfonamides; Z91.018 Allergy to other foods; Z91.013 Allergy to seafood; Z88.0 Allergy status to penicillin; W19.XXXA Unspecified fall, initial encounter
CPT/HCPCS: 36415; 36556; 70450; 71045; 71260; 72125; 74177; 80053; 82550; 83605; 84484; 85025; 85610; 85730; 86850; 86900; 86901; 87040; 87077; 87154; 87186; 87428; 93005; 96361; 96365; 96366; 96375; 99285; A9270; J0612; J1815; J7030; 93010; 99284